=== PATIENT | male | born 1975 | race Caucasian/White ===

== ENCOUNTER 2016-12-01 20:22 | Emergency (ER) | payer OTHER ==
--- NOTE | ~2016-12-01 | CR181 ---
[facility]. [facility] A Service of [facility] & [facility] RADIOLOGY TEXT RESULTS PATIENT: ADITYA BRENNAN LOCATION: SED : 77 UNIT #: [id number] AGE: [address]: Paloma Dumont MD SEX: M ORDER DR: [id number] [place] [id number] E MR#: [id number] Acc #: [id number] NAME: ADITYA BRENNAN : 1975 SEX: M STUDY DATE/TIME: 12/01/2016 20:13 UNIT: SED ROOM: STUDY DESCRIPTION: CR Lumbar Spine 2 or 3 Views Attending Physician: Paloma Dumont M.D. Ordering Physician: Paloma Dumont M.D. Primary Care Physician: No Primary Care Physician MEDICAL IMAGING REPORT This report is preliminary unless electronic signature is present. EXAM Lumbar spine, 3 views. HISTORY Low back pain for 3 days. Injury doing yard work. FINDINGS 3 views of lumbar spine demonstrate satisfactory lumbar alignment. Mild disc space narrowing at L4-5 and L5-S1. Mild hypertrophic spurring lower lumbar spine. No fracture or subluxation. IMPRESSION No acute findings. Dictated by... Momo Barfield M.D. THIS IS AN ELECTRONICALLY VERIFIED REPORT Momo Barfield M.D. at 12/02/2016 11:40 PM DFJuan C/froilan TD: 12/01/2016 23:14 JOB #: [id number] MEDICAL IMAGING REPORT Page 1 of 1
[~2016-12-01 20:22] MED LIST: EC-NAPROSYN500 MG PO; IBUPROFEN800 MG PO; NORFLEX100 M1 DOB
== END 2016-12-01 21:20 | disposition home or self-care (01) ==
LOC: SED 20:22
DX: S39.012A Strain of muscle, fascia and tendon of lower back, initial encounter (principal); F17.210 Nicotine dependence, cigarettes, uncomplicated; X50.1XXA Overexertion from prolonged static or awkward postures, initial encounter; Y92.9 Unspecified place or not applicable
CPT/HCPCS: 72100; 96372; 99283; J1885; J2360